=== PATIENT | female | born 1975 | race Caucasian/White ===

== ENCOUNTER 2024-02-18 09:21 | Outpatient (AMB) | payer MEDICAID, SELFPAY ==
[2024-02-18 09:28] VITALS: BP 124/79; PULSE 77; RESP 18; TEMP 36.7; O2SAT 97; BMI 31.5
--- NOTE | 2024-02-18 09:28 | ORTHONT_ITS ---
Vital signs 02/18/24 09:28 Height 1.63 m Height Method Stated Weight 83.688 kg Weight Measurement Method Standing Scale BMI 31.5 BP 124/79 Blood Pressure Source Automatic Cuff Blood Pressure Location Left Upper Arm Position Sitting Respiration 18 Pulse 77 Pulse Source Monitor Temp 98.0 F Temp Source Temporal Artery Scan Pulse Oximetry (%) 97 Oxygen Delivery Method Room Air Med/Allergies Allergies & Medications Allergies codeine Allergy (Intermediate, Verified 02/18/24 09:29) NAUSEA hydromorphone Allergy (Intermediate, Verified 02/18/24 09:29) VOMITING, ITCHING latex Allergy (Intermediate, Verified 02/18/24 09:29) RASH,SWELLING Sulfa (Sulfonamide Antibiotics) Allergy (Intermediate, Verified 02/18/24 09:29) ITCHING, NAUSEA, AND VOMITTING sulfamethoxazole Allergy (Intermediate, Verified 02/18/24 09:29) RASH trimethoprim Allergy (Intermediate, Verified 02/18/24 09:29) RASH Medication Reconciliation Oxybutynin Chloride XL * (DITROPAN XL *) 10 mg PO QDAY ##0 04/03/17 [History Confirmed 02/18/24] loratadine 10 mg tablet (Claritin) 10 mg PO QDAY #0 tabs 04/03/17 [History Confirmed 02/18/24] lorazepam 1 mg tablet 1 mg PO BID #0 tabs 04/03/17 [History Confirmed 02/18/24] quetiapine 300 mg tablet (Seroquel) 300 mg PO HS #0 tabs 04/03/17 [History Confirmed 02/18/24] ranitidine HCl 150 mg tablet (Zantac) 150 mg PO HS #0 tabs 04/03/17 [History Confirmed 02/18/24] Psyllium Husk PKT * (METAMUCIL PKT *) 1 pkt PO BID ##60 04/07/17 [Rx Confirmed 02/18/24] docusate sodium 100 mg tablet (Stool Softener) 100 mg PO BID #60 tabs 04/07/17 [Rx Confirmed 02/18/24] tramadol 50 mg tablet (Ultram) 100 mg (2 x 50 mg) PO Q6HR PRN PAIN #50 tabs 04/07/17 [Rx Confirmed 02/18/24] Subjective Visit Visit for: follow up visit Immunization / Flu Flu Vaccine in the Last 12 Months: No Flu Vaccine Exclusion Criteria: Already Received History of Present Illness Chief complaint: PRE OP LEFT TKA Patient is a pleasant 48-year-old female with right greater than left knee pain. The knee pain has been ongoing for 3 to 4 years. Is been worse in the last 3 months is affecting her quality life and happiness. She has had over 5 injections, and Aleve. The pain is affecting her quality life and happiness. She had a change of insurance. 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/CAMPING Red flag PMH: smoker (CANNIBUS) Pain Pain level (0-10): 9 Pain duration: all day Pain location: inside (medial), outside (lateral), anterior and posterior Pain quality: sharp, dull, aching, burning, shocking, electric and tingling Pain timing: night, increases with activity and stairs Associated signs & symptoms: numbness, weakness and stiffness Ambulatory data Ambulatory device: none Treatments Number of previous injections: 5 Improvement with previous injections: No Improvement with PT: No Improvement with NSAIDS: no Review of Systems Review of Systems: All systems negative unless otherwise noted in HPI. Exam Exam Patient is in no acute distress and is cooperative with the examination today. Breathing is nonlabored. In no respiratory distress. Bilateral extremities were evaluated and demonstrates sensation intact to light touch. Palpable pedal pulses are present. No significant edema is present. Bilateral hips were examined. The patient has no pain with log roll of the hips. Internal rotation to 30 degrees and external rotation to 30 degrees is painless. Negative FADIR. The left knee was examined. The left knee is in [varus] alignment. Range of motion from [0-115] degrees. Knee is stable to varus and valgus as well as AP translation with <5mm. Patient has a [negative] McMurrays. There is [no] pain with patellofemoral compression and [no] crepitus noted. The knee is [tender] to palpation [medially]. The right knee was also examined. The right knee is in [varus] alignment. Range of motion from [0-120] degrees. Knee is stable to varus and valgus as well as AP translation with <5mm. Patient has a [negative] McMurrays. There is [no] pain with patellofemoral compression and [no] crepitus noted. The knee is [tender] to palpation [medially]. X-rays from [facility] demonstrate medial joint space narrowing and osteophytes Assessment and Plan Problem List (1) Degenerative arthritis of knee, bilateral: Status: Acute Plan: Patient is a pleasant 48-year-old female with bilateral knee pain bilateral knee arthritis. The pain is affecting her quality life. We discussed that I would order weightbearing x-rays and we can discuss knee replacement depending on what that shows. She would also need medical clearance Office Procedures GNS Level of Care Nursing/Assessment Patient Status: Established Patient Nursing Assessment/Reassesment: Medication Reconciliation, Update PMH in EMR and Vital Signs Coordination of Care: Complex Care and Chronic Disease 1-5, Education Complex Pt/Fam, Consent,records obtained, informed consent, 1 Ins Authorization, Results/Orders obtained and Staff clarify orders Established Patient Charge Established Patient Point Assignment: 110 Established Patient Point Charge: EP Level 3 (80-115) Past Medical History Past Medical History Have you ever been diagnosed with any of the following: Respiratory Problems Smoking: No Smoking Exposure: No
== END 2024-02-18 09:43 | disposition home or self-care (01) ==
PROVIDERS: PCP Family Medicine; Referring Provider Family Medicine; Supervising Provider Orthopaedic Surgery Adult Reconstructive Orthopaedic Surgery; Visit Provider Orthopaedic Surgery Adult Reconstructive Orthopaedic Surgery
DX: M17.0 Bilateral primary osteoarthritis of knee (principal); M25.562 Pain in left knee; M25.561 Pain in right knee
CPT/HCPCS: 99213; G0463

== ENCOUNTER 2024-03-03 08:19 | Outpatient (AMB) | payer MEDICAID, SELFPAY ==
--- NOTE | 2024-03-03 08:24 | PD.ORTHCLVIS ---
Vital signs 03/03/24 08:25 Height 1.63 m Height Method Measured Weight 84.17 kg Weight Measurement Method Standing Scale BMI 31.6 BP 117/81 Blood Pressure Source Automatic Cuff Blood Pressure Location Left Upper Arm Position Sitting Respiration 19 Pulse 77 Pulse Source Monitor Temp 97.9 F Temp Source Temporal Artery Scan Pulse Oximetry (%) 98 Oxygen Delivery Method Room Air Med/Allergies Allergies & Medications Allergies codeine Allergy (Intermediate, Verified 03/03/24 08:26) NAUSEA hydromorphone Allergy (Intermediate, Verified 03/03/24 08:26) VOMITING, ITCHING latex Allergy (Intermediate, Verified 03/03/24 08:26) RASH,SWELLING Sulfa (Sulfonamide Antibiotics) Allergy (Intermediate, Verified 03/03/24 08:26) ITCHING, NAUSEA, AND VOMITTING sulfamethoxazole Allergy (Intermediate, Verified 03/03/24 08:26) RASH trimethoprim Allergy (Intermediate, Verified 03/03/24 08:26) RASH Medication Reconciliation naproxen sodium 220 mg tablet (Aleve) 220 mg PO BID PRN 03/03/24 [History Confirmed 03/03/24] Subjective Visit Visit for: follow up visit and knee Immunization / Flu Flu Vaccine in the Last 12 Months: No Flu Vaccine Exclusion Criteria: Already Received History of Present Illness Chief complaint: PRE OP RIGHT TKA Patient is a pleasant 48-year-old female with right greater than left knee pain. The knee pain has been ongoing for 3 to 4 years. Is been worse in the last 3 months is affecting her quality life and happiness. She has had over 5 injections, and Aleve. The pain is affecting her quality life and happiness. She reports today that she is allergic to nickel. 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 Exam Exam Patient is in no acute distress and is cooperative with the examination today. Breathing is nonlabored. In no respiratory distress. Bilateral extremities were evaluated and demonstrates sensation intact to light touch. Palpable pedal pulses are present. No significant edema is present. Bilateral hips were examined. The patient has no pain with log roll of the hips. Internal rotation to 30 degrees and external rotation to 30 degrees is painless. Negative FADIR. The left knee was examined. The left knee is in [varus] alignment. Range of motion from [0-115] degrees. Knee is stable to varus and valgus as well as AP translation with <5mm. Patient has a [negative] McMurrays. There is [no] pain with patellofemoral compression and [no] crepitus noted. The knee is [tender] to palpation [medially]. The right knee was also examined. The right knee is in [varus] alignment. Range of motion from [0-120] degrees. Knee is stable to varus and valgus as well as AP translation with <5mm. Patient has a [negative] McMurrays. There is [no] pain with patellofemoral compression and [no] crepitus noted. The knee is [tender] to palpation [medially]. Bilateral knee x-rays demonstrates complete joint space obliteration medially with varus deformity and osteophytes. Assessment and Plan Problem List (1) Degenerative arthritis of knee, bilateral: Status: Acute Plan: Patient is a pleasant 48-year-old female with bilateral knee pain bilateral knee arthritis. The pain is affecting her quality life. Weightbearing x-rays demonstrate complete obliteration of the medial joint space. We discussed that she is on the younger side for a total knee replacement. She also reports that she does have a nickel allergy. We will thus use a nickel free knee replacement given this. The nature and purpose of the total knee replacement, alternative method(s) of treatment, the material risks involved, and the possibility of complications were fully explained to the patient. The patient does NOT have any of the following contraindications to TKA: - Active infection of the knee joint, OR - Active systemic bacteremia, OR - Active skin infection or open wound at surgical site, OR - Neuropathic arthritis, OR - Severe, rapidly progressive neurological disease, OR - Severe medical condition that makes risks of surgery outweigh the potential benefit The patient was told the most common risks and complications associated with a total knee replacement include, but are not limited to: blood clots in the leg, fatal pulmonary embolism, dislocation of the prosthesis, intraoperative and postoperative fractures of the femur or tibia, infection, failure of the prosthesis or grafting materials, complications from anesthesia, reactions to blood transfusions, postoperative leg length inequality, instability of the knee replacement, nerve damage or injury, vascular injury, delayed wound healing, infection, other injury or even . In addition, there are risks associated with anesthesia given during this operation. Also, the patient was told that after undergoing a total knee replacement there may still be persistent pain or disability. The patient was informed that the success of this operation in part depends upon the mechanical devices which are going to be implanted and that these devices can fail or malfunction, and may need to be repaired or replaced and there are no guarantees as to the longevity of this device or its parts and that it or its parts could fail prematurely. The patient was also notified that during the course of surgery, there may be a need to use bone graft from donors, and that any bone graft used will be carefully screened for communicable diseases, including AIDS, hepatitis, Remi-Creutzfeldt, or other diseases, but despite the screening procedures, there is a small chance that they could contract one of these diseases. Finally, the patient was asked to follow completely and fully with all advice and recommended treatments, and that recovery and ultimate outcome are affected by their compliance with recommended treatment. We discussed the risks, benefits and treatment alternatives, and the patient is interested in proceeding with surgery. We will try to set this up as expeditiously as possible. Office Procedures GNS Level of Care Nursing/Assessment Patient Status: Established Patient Nursing Assessment/Reassesment: Medication Reconciliation, Update PMH in EMR and Vital Signs Coordination of Care: Complex Care/Chronic Disease 5 or more, Education Complex Pt/Fam, Consent,records obtained, informed consent, 1 Ins Authorization, Results/Orders obtained and Staff clarify orders Established Patient Charge Established Patient Point Assignment: 120 Established Patient Point Charge: EP Level 4 (120-155) Past Medical History Past Medical History Have you ever been diagnosed with any of the following: Cardiology Problems Congestive Heart Failure: No Hypertension: No Respiratory Problems Chronic Obstructive Pulmonary Disease (COPD): No Smoking: No Smoking Exposure: No
[2024-03-03 08:25] VITALS: BP 117/81; PULSE 77; RESP 19; TEMP 36.6; O2SAT 98; BMI 31.6
== END 2024-03-03 08:46 | disposition home or self-care (01) ==
LOC: HODSRG 08:19
PROVIDERS: Supervising Provider Orthopaedic Surgery Adult Reconstructive Orthopaedic Surgery; Visit Provider Orthopaedic Surgery Adult Reconstructive Orthopaedic Surgery
DX: M17.0 Bilateral primary osteoarthritis of knee (principal); M25.562 Pain in left knee; M25.561 Pain in right knee
CPT/HCPCS: 99213; 99214; G0463

== ENCOUNTER 2024-03-09 06:50 | Day surgery (SDC) | payer MEDICAID, SELFPAY ==
[2024-03-08 09:06] VITALS: BMI 33.2
[2024-03-08 10:23] LABS: Basophils % (Auto) 0 % (0-2.5); Eosinophils # (Auto) 0.3 Thou/mm3 (0.0-0.5); Eosinophils % (Auto) 4 % (0-10); Hematocrit 39.2 % (36.0-46.0); Hemoglobin 12.8 g/dL (12.0-16.0); Immature Granulocytes % (Auto) 0 % (0-0); Immature Granulocytes Auto 0.01 Thou/mm3 (0.00-0.00); Lymphocytes # (Auto) 2.1 Thou/mm3 (1.0-4.8); Lymphocytes % (Auto) 33 % (10-50); Mean Corpuscular HGB Conc 32.7 g/dl (31.0-37.0); Mean Corpuscular Hemoglobin 28.3 pg (25.0-35.0); Mean Corpuscular Volume 87 fL (80-100); Monocytes # (Auto) 0.5 Thou/mm3 (0.0-0.8); Monocytes % (Auto) 7 % (0-12); Neutrophils # (Auto) 3.5 Thou/mm3 (1.8-7.7); Neutrophils % (Auto) 56 % (37-80); Nucleated Red Blood Cell % 0 /100 WBC (0); Platelet Count 265 Thou/mm3 (140-440); RDW Standard Deviation 41.5 fL (36.4-46.3); Red Blood Count 4.52 Miln/mm3 (4.00-5.20); White Blood Count 6.4 Thou/mm3 (3.6-11.0)
[2024-03-08 10:30] LABS: Anion Gap 5 (7-16); BUN/Creatinine Ratio 16 Ratio (12-20); Blood Urea Nitrogen 11 mg/dL (9-23); Calcium 9.5 mg/dL (8.3-10.6); Carbon Dioxide 28.1 mMol/L (20.0-31.0); Chloride 107 mMol/L (98-107); Creatinine (Component) 0.7 mg/dL (0.6-1.3); Estimated Creatinine Clearance 105.5 mL/min (>60); Glucose 87 mg/dL (74-106); Osmolality,Calculated 277 (275-295); Potassium 4.5 mMol/L (3.4-5.1); Sodium 140 mMol/L (136-145); eGFR > 60 See Note
[2024-03-08 10:35] LABS: INR 0.9 (0.9-1.3); Partial Thromboplastin Time 23.9 Seconds (22.0-36.0); Prothrombin Time 10.3 Seconds (9.0-12.2)
[2024-03-09] VITALS (18 sets, daily range): BP systolic 105–144; BP diastolic 64–88; PULSE 63–85; RESP 13–20; TEMP 36.1–36.7; O2SAT 94–100; BMI 32.3; BMI 15.0
[2024-03-09] MEDS: PREGABALIN 75 MG CAPSULE PO (07:22)
[2024-03-09] MEDS: MELOXICAM 7.5 MG TABLET PO (07:22)
[2024-03-09] MEDS: ACETAMINOPHEN 325 MG TABLET 650 MG PO (07:22)
[2024-03-09] MEDS: RINGERS LACTATED 1000 ML 1,000 ML 20 ML IV (07:22)
--- NOTE | 2024-03-09 11:36 | XR_ITS ---
Examination: Right knee 2 views Technique one AP lateral right knee 2 views Exam date and time: March 09, 2024 1213 hours INDICATIONS: Postop knee replacement FINDINGS: Total right knee replacement Satisfactory alignment No fracture IMPRESSION: Total right knee replacement with satisfactory alignment
--- NOTE | 2024-03-09 11:44 | SUR.PHASEI ---
pt received from OR in recovery bay 5. pt obtunded, breathing unlabored on 10l nc, lma in place. v/s stable. pt dressing to right lower extremity cdi. report received from Herve LOZANO and Jag HOLGUIN.
[2024-03-09] MEDS: ONDANSETRON INJ 2 MG/ML INJ 2 ML 4 MG IV (12:20)
[2024-03-09] MEDS: SCOPOLAMINE 1 MG TDSY TOP (12:34)
--- NOTE | 2024-03-09 12:36 | SUR.PHASEII ---
Report from Randy LOZANO
[2024-03-09] MEDS: PROMETHAZINE INJ 12.5 MG in SODIUM CHLORIDE 0.9% 50 ML 2.5 MG IV (12:50)
--- NOTE | 2024-03-09 13:12 | SUR.PHASEII ---
Report to Randy LOZANO
--- NOTE | 2024-03-09 13:30 | SUR.PHASEII ---
pt able to eat jello and tolerate oral fluids without difficulty swallowing or nausea/vomiting.
[2024-03-09] MEDS: ACETAMINOPHEN 500 MG TABLET 1000 MG PO (13:39)
[2024-03-09] MEDS: oxyCODONE HCL 5 MG IR TAB 10 MG PO (13:39)
--- NOTE | 2024-03-09 16:15 | SUR.PHASEII ---
pt awake and alert, breathing unlabored on room air. v/s stable. pt dressing to right lower extremity cdi. pt cleared by Physical Therapist Marisa. pt able to ambulate to wheelchair with steady gait. d/c instructions given with s/o Lawson in room, all question answered. pt d/c via wheelchair with all belongings.
--- NOTE | 2024-03-14 15:46 | ESOP_ITS ---
Date of Procedure 03/09/24 Pre Op Diagnosis right knee osteoarthritis Post Op Diagnosis right knee osteoarthritis Procedure right total knee replacement Findings full thickness cartilage loss and osteophytes Procedure Description Indication: The patient is a 48 year old who has a long history of right knee pain. X-rays show degenerative arthritis involving the knee. Over the past several years the patient has had increasing pain, progressive limitation in function. He has failed conservative measures including activity modification, physical therapy, injections, anti-inflammatories, and assistive devices. After a lengthy discussion of the risks and benefits, the patient presents now for total knee replacement. We discussed a nickel free knee replacement given her history. The nature and purpose of the total knee replacement, alternative method(s) of treatment, the material risks involved, and the possibility of complications we re fully explained to the patient. The patient was told the most common risks and complications associated with a total knee replacement include, but are not limited to blood clots in the leg, fatal pulmonary embolism, dislocation of the prosthesis, intraoperative and postoperative fractures of the femur or tibia, infection, failure of the prosthesis or grafting materials, complications from anesthesia, reactions to blood transfusions, postoperative leg length inequality, instability of the knee replacement, nerve damage or injury, vascular injury, delayed wound healing, infections, other injury or even . In addition, there are risks associated with anesthesia given during this operation, temporary or permanent numbness on the skin lateral to the incision can be a complication unique to total knee surgery, and kneeling can be painful after knee replacement surgery. Also, the patient was told that after undergoing a total knee replacement there may still be pain or disability. We discussed with the patient that we will be using a robot-assisted technology. We discussed that there is a possibility of converting to manual instrumentation. The patient was informed that the success of this operation in part depends upon the mechanical devices which are going to be implanted and that these devices can fail or malfunction, and may need to be repaired or replaced and there are no guarantees as to the longevity of this device or its part and that it or its parts could fail prematurely. Finally, the patient was asked to follow completely and fully with all advice and recommended treatments, and that recovery and ultimate outcome are affected by their compliance with recommended treatment. Surgical technique: Patient was marked and consented in the pre-operative area. The patient was brought to the operating room and placed on the operating table in a supine position. Prior to positioning, a timeout procedure was performed between the surgeon, the anesthesiologist, and the nursing staff where the patient and the operative side were identified and confirmed. After adequate general anesthetic was obtained, the left lower extremity was prepped and draped in the usual sterile fashion. A weight based dose of Cefazolin were administered within 1 hour prior to incision. The robot was preregistered and calirated before the incision. The extremity was exsanguinated with an esmarch badge and tourniquet inflated to 250mmHg. A midline incision was made. A median parapatellar arthrotomy was made. The patella was subluxed laterally. A medial release was performed to expose the medial tibia. His femoral and tibial pins were placed through an intra incisional manner for both cases. Every effort was made to ensure that the distalmost aspect of the pin was hung in the second cortex. The arrays were then tightened several times to ensure that it was fixed for the remainder of the case. Both femoral and tibial checkpoints were then placed. We then went through the registration process of the bone. We then assessed the knee deformity and attempted to correct it. We also used the robot to aid in judging laxity in both extension and flexion. Final based on laxity and alignment we changed the preoperative assessment to obtain proper proper implant positioning and to correct deformity. Attention was then placed to the tibia. We made a tibial cut using the robot ensuring that both the MCL and the patella tendon were protected with retractors. We then went to the femur and made the posterior cut followed by the anterior cut and the anterior chamfer. The bone was then removed and we made a distal femur cut and a posterior chamfer cut. We verified all cuts. A trial reduction was performed with a size marnie femoral component and a keeled tibial component. The patella tracked centrally, and no lateral retinacular release was necessary. The trial implants were removed. The arrays, pins, and checkpoints were all removed. We performed a verification that all pins were removed. The cut bone surfaces were lavaged. A Marnie nickel free femoral component, and a keeled tibial component were impacted into position using 2 bags of palacos. The knee was left in extension until the cement hardened. The knee was felt to be well balanced in the sagittal and coronal plane. The final 11mm cruciate- substituting articular insert was impacted into the tibial tray. The knee was brought out to full extension, flexed up to 120 degrees. It was stable to varus and valgus stress and appropriately balanced in flexion and extension. The wounds were copiously irrigated following deflation of tourniquet. The medial retinaculum was reapproximated with #1 vicryl and quill. The subcutaneous tissues were closed with 0 and 2-0 interrupted Vicryl. The skin was closed with 3-0 Monofilament V loc suture. A sterile dressing was applied. The patient was transferred to a bed and brought to recovery in stable condition. The patient tolerated the procedure well. There were no intraoperative complications. Sponge and needle counts were correct times 2. As the attending surgeon, I attest I was present and performed the entire operation. Anesthesia GETA Implants marnie persona nickel free Pathology / specimen None Pathology comment: none Estimated Blood Loss 150 Surgeon Marshall Abel MD Surgical Staff Operation Date: 03/09/24 10:45 Case Staff BOATBUILDER SUPERVISOR: Matt Narvaez RNcomputer tester: Mel Goodwin
== END 2024-03-09 16:15 | disposition home or self-care (01) ==
PROVIDERS: PCP Family Medicine; Referring Provider Orthopaedic Surgery Adult Reconstructive Orthopaedic Surgery; Visit Provider Orthopaedic Surgery Adult Reconstructive Orthopaedic Surgery
PROC: (CPT 27447; principal; 2024-03-09 10:45)
DX: M17.11 Unilateral primary osteoarthritis, right knee (principal); M25.761 Osteophyte, right knee
CPT/HCPCS: 27447; 20985; C1776; 36415; 73560; 80048; 85025; 85610; 85730; 97162; A4217; C1713; J0171; J0690; J1100; J1885; J2250; J2405; J2550; J2704; J2795; J3010; J3490; J7030; J7120; A9270

== ENCOUNTER 2024-03-25 08:30 | Outpatient (AMB) | payer MEDICAID, SELFPAY ==
[2024-03-25 08:49] VITALS: BP 118/82; PULSE 74; RESP 18; TEMP 36.7; O2SAT 94; BMI 32.0
--- NOTE | 2024-03-25 08:49 | PD.ORTHCLVIS ---
Vital signs 03/25/24 08:49 Height 1.63 m Height Method Stated Weight 84.567 kg Weight Measurement Method Standing Scale BMI 32.0 BP 118/82 Blood Pressure Source Automatic Cuff Blood Pressure Location Left Upper Arm Position Sitting Respiration 18 Pulse 74 Pulse Source Monitor Temp 98.0 F Temp Source Temporal Artery Scan Pulse Oximetry (%) 94 L Oxygen Delivery Method Room Air Med/Allergies Allergies & Medications Allergies codeine Allergy (Intermediate, Verified 03/09/24 11:29) NAUSEA hydromorphone Allergy (Intermediate, Verified 03/09/24 11:29) VOMITING, ITCHING latex Allergy (Intermediate, Verified 03/09/24 11:29) RASH,SWELLING Sulfa (Sulfonamide Antibiotics) Allergy (Intermediate, Verified 03/09/24 11:29) ITCHING, NAUSEA, AND VOMITTING sulfamethoxazole Allergy (Intermediate, Verified 03/09/24 11:29) RASH trimethoprim Allergy (Intermediate, Verified 03/09/24 11:29) RASH Subjective Visit Visit for: post op #1 and knee Immunization / Flu Flu Vaccine in the Last 12 Months: No Flu Vaccine Exclusion Criteria: Already Received History of Present Illness Chief complaint: PT HERE FOR 2 WEEK POST OP RIGHT TKA Pain Pain level (0-10): 8 Pain duration: CONSTANT Pain location: inside (medial), outside (lateral), anterior and posterior Pain quality: aching Pain timing: night and increases with activity Associated signs & symptoms: stiffness Ambulatory data Ambulatory device: walker Review of Systems Review of Systems: All systems negative unless otherwise noted in HPI. Office Procedures GNS Level of Care Nursing/Assessment Patient Status: Established Patient Nursing Assessment/Reassesment: BP Monitoring, Medication Reconciliation, Update PMH in EMR and Vital Signs Coordination of Care: Complex Care and Chronic Disease 1-5, Consent,records obtained, informed consent, Lab and Imaging orders and Results/Orders obtained Established Patient Charge Established Patient Point Assignment: 95 Established Patient Point Charge: EP Level 3 (80-115) Past Medical History Past Medical History Have you ever been diagnosed with any of the following: Neurological Problems Seizures: No Migraine: Yes Cardiology Problems Congestive Heart Failure: No Hypertension: No Respiratory Problems Chronic Obstructive Pulmonary Disease (COPD): No Asthma: Yes (USES SYMBICORT) Smoking: Yes (THC) Smoking Exposure: Yes Stomache/Intestinal Problems Mario's Esophagus: Yes Gastroesophageal Reflux Disease: Yes (OTC OMEPRAZOLE PRN) Genital/Urinary Problems Renal Disease: No Kidney Stones: Yes Reproductive Problems Previous Pregnancies: Yes (X2) Musculoskeletal Problems Arthritis: Yes (BILATERAL KNEES) Degenerative Disk Disease: Yes Endocrine Problems Diabetes Mellitus Type 1: No Diabetes Mellitus Type 2: No Psychologic Problems Depression: Yes (NO MEDS. USES CANNABIS) Anxiety: Yes (NO MEDS) Other Problems Falls: No Blood Transfusions: No Anesthesia Reactions: Yes (PANICK ATTACK ON AWAKENING X2) Surgical History Hysterectomy: Yes
== END 2024-03-25 09:05 | disposition home or self-care (01) ==
PROVIDERS: PCP Physician Assistant; Referring Provider Physician Assistant; Supervising Provider Orthopaedic Surgery Adult Reconstructive Orthopaedic Surgery; Visit Provider Orthopaedic Surgery Adult Reconstructive Orthopaedic Surgery
DX: Z96.651 Presence of right artificial knee joint (principal)
CPT/HCPCS: 99213; G0463

== ENCOUNTER 2024-04-01 15:00 | Outpatient (RCR) | payer MEDICAID, SELFPAY ==
--- NOTE | 2024-03-23 08:37 | PT.OIERPT ---
PT OP Initial Eval Patient Information Outpatient Physical Therapy Treatment Date: 03/23/24 Visit Reasons: Right tka Medical Diagnosis: M17.11 Treatment Dx #1: R knee pain Treatment Dx #2: Decreased R knee ROM Start of Care: 03/23/24 Date of Onset: 03/09/24 Smoking Status Smoking Status: Never smoker Initial Assessment Subjective: Pt is 48 yr old female s/p R TKA presents ambulating with FWW and reports knee pain and difficulty bending it. She is ambulating at home and limited community distances. PMH: lumbar DDD, anxiety, allergies Pt goal: to be able to walk without walker normal distances Objective: R knee AROM: ? Flexion: 78 deg ? Extension: -10 deg ? SLR: ? 15 deg ? Strength: ? Quads and hamstrings 3-/5 ? Antalgic gait pattern with decreased WB tolerance on R LE Assessment: Pt presentation consistent with post op R TKA with decreased ROM, strength ? and WB tolerance. Pt lacks a few degrees of knee extension and flexion is limited by ? myofascial limitations and pain.? Pt requires skilled therapy to improve ROM ? and strength and has good rehab potential.? Eval followed by HEP with printout. Short Term and [employer] Specialist Goals 1. Independent with HEP 2. Improved knee ROM to full extension to 120 deg flexion 3. Improved quad and hamstring strength to 4+/5 4. Improved ambulatory tolerance to community distances with symmetrical ?? gait pattern.??? Treatment Plan ? 1. Manual therapy ? 2. Therex ? 3. Modalities as indicated, moist heat, ice, estim Frequency and Duration: 2-3x a week for 18 visits Certification Dates: 03/23/24 to 06/19/24 Procedure Charges OP PT Eval Mod Complex 30 minutes: Yes
--- NOTE | 2024-03-30 17:26 | PT.ODAYNRPT ---
PT Outpatient Daily Note OP Daily Note Outpatient Physical Therapy Treatment Date: 03/30/24 Visit Reasons: Right tka Subjective: Doing HEP with better ROM and walking without walker today Objective: See F/S for therex Assessment: Pt ambulates with flexed R knee but has improved extension ROM since last visit to about -10 deg in supine. Plan: Continue per POC Length of Time (minutes) of Treatment: 30 Minutes Procedure Charges Therapeutic Exercise 30 minutes: Yes
--- NOTE | 2024-04-01 16:00 | PT.ODAYNRPT ---
PT Outpatient Daily Note OP Daily Note Outpatient Physical Therapy Treatment Date: 04/01/24 Visit Reasons: Right tka Subjective: Pt reports compliance with HEP. Objective: Please see flow sheet for ther ex list. Assessment: Pt instructed on stretches for R knee for knee flexion and extension, pt able to replicate with good technique. Plan: Continue with POC. Length of Time (minutes) of Treatment: 30 Minutes Procedure Charges Therapeutic Exercise 30 minutes: Yes
== END 2024-04-12 23:59 | disposition home or self-care (01) ==
LOC: CPTX 15:00
PROVIDERS: PCP Orthopaedic Surgery Adult Reconstructive Orthopaedic Surgery; Referring Provider Orthopaedic Surgery Adult Reconstructive Orthopaedic Surgery; Visit Provider Orthopaedic Surgery Adult Reconstructive Orthopaedic Surgery
DX: M25.561 Pain in right knee (principal); Z96.651 Presence of right artificial knee joint
CPT/HCPCS: 97110; 97162

== ENCOUNTER → 2024-04-18 | Outpatient (CLI) | payer MEDICAID, SELFPAY ==
--- NOTE | 2024-04-18 10:38 | XR_ITS ---
Examination: Right knee 4 views TECHNIQUE: AP oblique lateral axial right knee 4 views Exam date and time: April 18, 2024 1045 hours INDICATIONS: Postop knee replacement 6 weeks ago. FINDINGS: Total right knee arthroplasty. Satisfactory alignment. No fracture. No loosening of the prosthetic components IMPRESSION: Total right knee arthroplasty with satisfactory alignment
== END | disposition home or self-care (01) ==
LOC: CDIM 10:26
PROVIDERS: PCP Family Medicine; Referring Provider Orthopaedic Surgery Adult Reconstructive Orthopaedic Surgery; Visit Provider Orthopaedic Surgery Adult Reconstructive Orthopaedic Surgery
DX: M17.11 Unilateral primary osteoarthritis, right knee (principal); Z96.651 Presence of right artificial knee joint
CPT/HCPCS: 73564

== ENCOUNTER 2024-04-22 07:52 | Outpatient (AMB) | payer MEDICAID, SELFPAY ==
[2024-04-22 08:11] VITALS: BP 119/83; PULSE 84; RESP 19; TEMP 36.6; O2SAT 96; BMI 31.4
--- NOTE | 2024-04-22 08:11 | ORTHONT_ITS ---
Vital signs 04/22/24 08:11 Height 1.63 m Height Method Stated Weight 83.518 kg Weight Measurement Method Standing Scale BMI 31.4 BP 119/83 Blood Pressure Source Automatic Cuff Blood Pressure Location Left Upper Arm Position Sitting Respiration 19 Pulse 84 Pulse Source Monitor Temp 97.9 F Temp Source Temporal Artery Scan Pulse Oximetry (%) 96 Oxygen Delivery Method Room Air Med/Allergies Allergies & Medications Allergies codeine Allergy (Intermediate, Verified 04/22/24 08:12) NAUSEA hydromorphone Allergy (Intermediate, Verified 04/22/24 08:12) VOMITING, ITCHING latex Allergy (Intermediate, Verified 04/22/24 08:12) RASH,SWELLING Sulfa (Sulfonamide Antibiotics) Allergy (Intermediate, Verified 04/22/24 08:12) ITCHING, NAUSEA, AND VOMITTING sulfamethoxazole Allergy (Intermediate, Verified 04/22/24 08:12) RASH trimethoprim Allergy (Intermediate, Verified 04/22/24 08:12) RASH Medication Reconciliation naproxen sodium 220 mg tablet (Aleve) 440 mg PO BID PRN Pain (Scale Score 4-6) 03/03/24 [History Confirmed 04/22/24] budesonide-formoterol HFA 160 mcg-4.5 mcg/actuation aerosol inhaler (Symbicort) 1 inh inhalation BID 03/08/24 [History Confirmed 04/22/24] omega-3 fatty acids-vitamin E 1,000 mg capsule 1 cap PO QDAY 03/08/24 [History Confirmed 04/22/24] aspirin 81 mg tablet,delayed release 81 mg PO BID #60 tabs 03/09/24 [Rx Confirmed 04/22/24] doxycycline hyclate 100 mg tablet 100 mg PO BID #14 tabs 03/09/24 [Rx Confirmed 04/22/24] oxycodone 5 mg tablet 5 mg PO Q6H PRN pain #28 tabs 03/09/24 [Rx Confirmed 04/22/24] sennosides 8.6 mg-docusate sodium 50 mg tablet (Senna-S) 1 tab-cap PO QDAY #30 tabs 03/09/24 [Rx Confirmed 04/22/24] acetaminophen 500 mg tablet (Acetaminophen Extra Strength) 1,000 mg (2 x 500 mg) PO Q6H PRN pain #90 tabs 03/25/24 [Rx Confirmed 04/22/24] cyclobenzaprine 5 mg tablet 5 mg PO TID PRN muscle spasm #60 tabs 04/22/24 [Rx] gabapentin 300 mg capsule 300 mg PO .qhs #30 caps 04/22/24 [Rx] ibuprofen 600 mg tablet 600 mg PO Q6H PRN pain #60 tabs 04/22/24 [Rx] oxycodone 5 mg tablet 5 mg PO Q6H PRN pain #28 tabs 04/22/24 [Rx] Exam Exam Patient is in no acute distress and is cooperative with the examination today. Breathing is nonlabored. In no respiratory distress. Bilateral extremities were evaluated and demonstrates sensation intact to light touch. Palpable pedal pulses are present. No significant edema is present. Bilateral hips were examined. The patient has no pain with log roll of the hips. Internal rotation to 30 degrees and external rotation to 30 degrees is mariaa nless. Negative FADIR. The left knee was examined. The left knee is in [varus] alignment. Range of motion from [0-115] degrees. Knee is stable to varus and valgus as well as AP translation with <5mm. Patient has a [negative] [place]. There is [no] pain with patellofemoral compression and [no] crepitus noted. The knee is [tender] to palpation [medially]. Right knee incision c/d/i. R knee range of motion is 0-110 R TKA is in good alignment and position on xraysl Assessment and Plan Problem List (1) Degenerative arthritis of knee, bilateral: Status: Acute Plan: Patient is a pleasant 48-year-old female with bilateral knee pain bilateral knee arthritis. She is doing well s/p R TKA. Her leftknee is affecting her quality of life and happiness. She has tried multiple injections, and antiinflammatories and a home exercise program. At this point, Left knee is affecting her quality life and happiness. She reports the right knee feels way better than the left. She would like to get the left knee replaced when she can. The nature and purpose of the total knee replacement, alternative method(s) of treatment, the material risks involved, and the possibility of complications were fully explained to the patient. The patient does NOT have any of the following contraindications to TKA: - Active infection of the knee joint, OR - Active systemic bacteremia, OR - Active skin infection or open wound at surgical site, OR - Neuropathic arthritis, OR - Severe, rapidly progressive neurological disease, OR - Severe medical condition that makes risks of surgery outweigh the potential benefit The patient was told the most common risks and complications associated with a total knee replacement include, but are not limited to: blood clots in the leg, fatal pulmonary embolism, dislocation of the prosthesis, intraoperative and postoperative fractures of the femur or tibia, infection, failure of the prosthesis or grafting materials, complications from anesthesia, reactions to blood transfusions, postoperative leg length inequality, instability of the knee replacement, nerve damage or injury, vascular injury, delayed wound healing, infection, other injury or even . In addition, there are risks associated with anesthesia given during this operation. Also, the patient was told that after undergoing a total knee replacement there may still be persistent pain or disability. The patient was informed that the success of this operation in part depends upon the mechanical devices which are going to be implanted and that these devices can fail or malfunction, and may need to be repaired or replaced and there are no guarantees as to the longevity of this device or its parts and that it or its parts could fail prematurely. The patient was also notified that during the course of surgery, there may be a need to use bone graft from donors, and that any bone graft used will be carefully screened for communicable diseases, including AIDS, hepatitis, Remi-Creutzfeldt, or other diseases, but despite the screening procedures, there is a small chance that they could contract one of these diseases. Finally, the patient was asked to follow completely and fully with all advice and recommended treatments, and that recovery and ultimate outcome are affected by their compliance with recommended treatment. We discussed the risks, benefits and treatment alternatives, and the patient is interested in proceeding with [facility]. We will try to set this up as expeditiously as possible. Office Procedures GNS Level of Care Nursing/Assessment Patient Status: Established Patient Nursing Assessment/Reassesment: Medication Reconciliation, Update PMH in EMR and Vital Signs Coordination of Care: Complex Care and Chronic Disease 1-5, Education Complex Pt/Fam, Consent,records obtained, informed consent, Results/Orders obtained and Staff clarify orders Established Patient Charge Established Patient Point Assignment: 95 Established Patient Point Charge: EP Level 3 (80-115) ID Intake Visit Data Collection New Patient or Established: Established Patient (seen at [facility] within 3 years) Reason for Visit:: 2 WEEK POST OP FOLLOW UP RIGHT TKA Seen by Clinical Staff ONLY (RN/MA): No Gender Studies Professor Required: No PCP or OBGYN visit in last 3 months: Yes Hx Now: No Do You Feel Safe at Home: Yes Authorities Contacted: N/A Questionairres Past Medical History Past Medical History Have you ever been diagnosed with any of the following: Neurological Problems Seizures: No Migraine: Yes Cardiology Problems Congestive Heart Failure: No Hypertension: No Respiratory Problems Chronic Obstructive Pulmonary Disease (COPD): No Asthma: Yes (USES SYMBICORT) Smoking: Yes (THC) Smoking Exposure: Yes Stomache/Intestinal Problems Mario's Esophagus: Yes Gastroesophageal Reflux Disease: Yes (OTC OMEPRAZOLE PRN) Genital/Urinary Problems Renal Disease: No Kidney Stones: Yes Reproductive Problems Previous Pregnancies: Yes (X2) Musculoskeletal Problems Arthritis: Yes (BILATERAL KNEES) Degenerative Disk Disease: Yes Endocrine Problems Diabetes Mellitus Type 1: No Diabetes Mellitus Type 2: No Psychologic Problems Depression: Yes (NO MEDS. USES CANNABIS) Anxiety: Yes (NO MEDS) Other Problems Falls: No Blood Transfusions: No Anesthesia Reactions: Yes (PANICK ATTACK ON AWAKENING X2) Surgical History Hysterectomy: Yes Subjective Visit Visit for: follow up visit and knee Immunization / Flu Flu Vaccine in the Last 12 Months: No Flu Vaccine Exclusion Criteria: No Exclusion Criteria History of Present Illness Chief complaint: s/p r tka Patient is a 48-year-old female with right knee pain and left knee pain status post right total knee replacement. She had a metal allergy knee and she loves it. She reports the left knee is now affecting her quality life and happiness. It has been ongoing for a while. She has tried injections and anti- inflammatories. She would like to proceed with surgery. The nature and purpose of the total knee replacement, alternative method(s) of treatment, the material risks involved, and the possibility of complications were fully explained to the patient. The patient does NOT have any of the following contraindications to TKA: - Active infection of the knee joint, OR - Active systemic bacteremia, OR - Active skin infection or open wound at surgical site, OR - Neuropathic arthritis, OR - Severe, rapidly progressive neurological disease, OR - Severe medical condition that makes risks of surgery outweigh the potential benefit The patient was told the most common risks and complications associated with a total knee replacement include, but are not limited to: blood clots in the leg, fatal pulmonary embolism, dislocation of the prosthesis, intraoperative and postoperative fractures of the femur or tibia, infection, failure of the prosthesis or grafting materials, complications from anesthesia, reactions to blood transfusions, postoperative leg length inequality, instability of the knee replacement, nerve damage or injury, vascular injury, delayed wound healing, infection, other injury or even . In addition, there are risks associated with anesthesia given during this operation. Also, the patient was told that af ter undergoing a total knee replacement there may still be persistent pain or disability. The patient was informed that the success of this operation in part depends upon the mechanical devices which are going to be implanted and that these devices can fail or malfunction, and may need to be repaired or replaced and there are no guarantees as to the longevity of this device or its parts and that it or its parts could fail prematurely. The patient was also notified that during the course of surgery, there may be a need to use bone graft from donors, and that any bone graft used will be carefully screened for communicable diseases, including AIDS, hepatitis, Remi-Creutzfeldt, or other diseases, but despite the screening procedures, there is a small chance that they could contract one of these diseases. Finally, the patient was asked to follow completely and fully with all advice and recommended treatments, and that recovery and ultimate outcome are affected by their compliance with recommended treatment. We discussed the risks, benefits and treatment alternatives, and the patient is interested in proceeding with surgery. We will try to set this up as expeditiously as possible. Pain Pain level (0-10): 6 Pain duration: ON AND OFF Pain location: inside (medial) Pain quality: aching Pain timing: night and increases with activity Associated signs & symptoms: none Ambulatory data Ambulatory device: none Treatments Improvement with previous injections: No Improvement with PT: No Improvement with NSAIDS: no Review of Systems Review of Systems: All systems negative unless otherwise noted in HPI.
== END 2024-04-22 08:26 | disposition home or self-care (01) ==
LOC: HODSRG 07:52
PROVIDERS: PCP Orthopaedic Surgery Adult Reconstructive Orthopaedic Surgery; Referring Provider Orthopaedic Surgery Adult Reconstructive Orthopaedic Surgery; Supervising Provider Orthopaedic Surgery Adult Reconstructive Orthopaedic Surgery; Visit Provider Orthopaedic Surgery Adult Reconstructive Orthopaedic Surgery
DX: M17.0 Bilateral primary osteoarthritis of knee (principal); M25.562 Pain in left knee; M25.561 Pain in right knee; Z96.651 Presence of right artificial knee joint
CPT/HCPCS: 99213; G0463

== ENCOUNTER → 2024-05-06 | Outpatient (CLI) | payer MEDICAID, SELFPAY ==
--- NOTE | 2024-05-06 14:30 | XR_ITS ---
Examination: CT left lower extremity, without contrast. 2-D sagittal reconstructions. 2-D coronal reconstructions. 3-D reconstructions. Date and time of exam:May 06, 2024 1424 hours INDICATIONS: Left knee pain years, diagnosis unilateral left knee osteoarthritis CTDI: vol (mGy):20.5 DLP: (mGycm):955 Technique: Multiple 1.25 mm axial sections of the left lower extremity without intravenous contrast have been obtained. 2-D sagittal and coronal reconstructions have been obtained. 3-D reconstructions have been obtained. Low dose protocols were performed. One or more of the following dose reduction techniques were used; automated exposure control, adjustment of the mA and/or KV according to patient size, use of iterative reconstruction technique. Findings: Mild osteopenia Mild narrowing left hip joint No left hip fracture or dislocation No avascular necrosis Severe narrowing medial joint space left knee Significant osteoarthritis lateral joint space left knee Moderate osteoarthritis patellofemoral joint No fracture IMPRESSION: Severe narrowing medial joint space left knee Significant osteoarthritis lateral joint space left knee
== END | disposition home or self-care (01) ==
PROVIDERS: Referring Provider Orthopaedic Surgery Adult Reconstructive Orthopaedic Surgery; Visit Provider Orthopaedic Surgery Adult Reconstructive Orthopaedic Surgery
DX: M17.12 Unilateral primary osteoarthritis, left knee (principal); M25.862 Other specified joint disorders, left knee
CPT/HCPCS: 73700

== ENCOUNTER 2024-05-11 08:00 | Outpatient (RCR) | payer MEDICAID, SELFPAY ==
--- NOTE | 2024-04-18 13:20 | PT.ODAYNRPT ---
PT Outpatient Daily Note OP Daily Note Outpatient Physical Therapy Treatment Date: 04/18/24 Visit Reasons: Right TKA Subjective: Pain with extending the knee Objective: See F/S for therex Assessment: Pain and myofascial tension limits knee extension to about -10 deg Plan: Continue per POC Length of Time (minutes) of Treatment: 30 Minutes Procedure Charges Therapeutic Exercise 30 minutes: Yes
--- NOTE | 2024-04-20 08:27 | PT.ODAYNRPT ---
PT Outpatient Daily Note OP Daily Note Outpatient Physical Therapy Treatment Date: 04/20/24 Visit Reasons: Right TKA Subjective: Doing HEP with pain with extending the knee Objective: See F/S for therex Assessment: Improving extension ROM to about -10 deg. Antalgic gait pattern with flexed knees. Plan: Continue per POC Length of Time (minutes) of Treatment: 30 Minutes Procedure Charges Therapeutic Exercise 30 minutes: Yes
--- NOTE | 2024-04-22 13:53 | PT.ODAYNRPT ---
PT Outpatient Daily Note OP Daily Note Outpatient Physical Therapy Treatment Date: 04/22/24 Visit Reasons: Right TKA Subjective: Pt reports R knee is still stiff and achy. Objective: Please see flow sheet for ther ex list. Assessment: Focus on restoring ROM of R knee to work towards normalizing gait. Plan: Continue with POC. Length of Time (minutes) of Treatment: 30 Minutes Procedure Charges Therapeutic Exercise 30 minutes: Yes
--- NOTE | 2024-04-25 09:40 | PT.ODAYNRPT ---
PT Outpatient Daily Note OP Daily Note Outpatient Physical Therapy Treatment Date: 04/25/24 Visit Reasons: Right TKA Subjective: Doing HEP with pain with extending the knee Objective: See F/S for therex MT: PPM into flexion x7' with 10 sec holds at end-range Assessment: Improving extension ROM to about -6 deg and flexion to 100 with overpressure. Antalgic gait pattern with flexed knees. Plan: Continue per POC Length of Time (minutes) of Treatment: 30 Minutes Procedure Charges Therapeutic Exercise 30 minutes: Yes
--- NOTE | 2024-04-27 09:11 | PT.ODAYNRPT ---
PT Outpatient Daily Note OP Daily Note Outpatient Physical Therapy Treatment Date: 04/27/24 Visit Reasons: Right TKA Subjective: Pt reports R knee is doing ok, has been going to the gym working on strengthening. Pt mentioned that she is going to have her L knee replaced in about four weeks. Objective: Please see flow sheet for ther ex list. Assessment: Pain response limiting range during PROM knee flexion, pt highly guarded. Plan: Continue with pOC. Length of Time (minutes) of Treatment: 30 Minutes Procedure Charges Therapeutic Exercise 30 minutes: Yes
--- NOTE | 2024-05-02 13:36 | PT.ODAYNRPT ---
PT Outpatient Daily Note OP Daily Note Outpatient Physical Therapy Treatment Date: 05/02/24 Visit Reasons: Right TKA Subjective: Pt reports progress with knee movement. Objective: Please see flow sheet for ther ex list. Assessment: Pt instructed on heel toe gait, pt can replicate but presents with knee extension lag during heel strike. Plan: Continue with poC. Length of Time (minutes) of Treatment: 30 Minutes Procedure Charges Therapeutic Exercise 30 minutes: Yes
--- NOTE | 2024-05-04 08:08 | PT.ODAYNRPT ---
PT Outpatient Daily Note OP Daily Note Outpatient Physical Therapy Treatment Date: 05/04/24 Visit Reasons: Right TKA Subjective: Doing HEP with pain with extension and extension Objective: See F/S for therex MT: PPM into flexion x7' with 10 sec holds at end-range Assessment: Improving extension ROM to about -8 deg and flexion to 105 with overpressure. Antalgic gait pattern with flexed knees. Plan: Continue per POC Length of Time (minutes) of Treatment: 30 Minutes Procedure Charges Therapeutic Exercise 30 minutes: Yes
--- NOTE | 2024-05-09 09:09 | PT.ODAYNRPT ---
PT Outpatient Daily Note OP Daily Note Outpatient Physical Therapy Treatment Date: 05/09/24 Visit Reasons: Right TKA Subjective: The knee hurts to bend but it bends more Objective: See F/S for therex Assessment: Improved PROM into knee flexion to 110 degrees with overpressure today Plan: Reassess Length of Time (minutes) of Treatment: 30 Minutes Procedure Charges Therapeutic Exercise 30 minutes: Yes
--- NOTE | 2024-05-11 14:29 | PT.ODS1RPT ---
PT OP Progress/Discharge Note Date of Service: 05/11/24 Progress Note/DC Note Progress Note/Discharge Note: DC Note Patient Information Visit Reasons: Right TKA Service Continue Service or Discharge: Discharge Discharge Date: 05/11/24 Status Subjective: The knee hurts to bend fully but ROM has improved since starting therapy. Pt has other knee scheduled for TKA coming soon. Objective: See F/S for therex R knee ROM: Strength: Flexion: 106 deg 4+/5 Extension: -8 deg 4+/5 Gait: flexed knees Assessment: Pt has attended 12/12 sessions with good progress with therapy goals. She has improved PROM into knee flexion to 110 degrees with overpressure today which is shy of goal but very improved from 78 deg at evaluation. Knee extension has progressed slowly despite manual therapy with overpressure into extension and HEP. Strength of quads and HS has improved to meet that goal. She has TKA scheduled for the other knee and will D/C. Plan: D/C with HEP Procedure Charges Therapeutic Exercise 30 minutes: Yes
== END 2024-05-13 23:59 | disposition home or self-care (01) ==
LOC: CPTX 08:00
PROVIDERS: PCP Orthopaedic Surgery Adult Reconstructive Orthopaedic Surgery; Referring Provider Orthopaedic Surgery Adult Reconstructive Orthopaedic Surgery; Visit Provider Orthopaedic Surgery Adult Reconstructive Orthopaedic Surgery
DX: M25.561 Pain in right knee (principal); Z96.651 Presence of right artificial knee joint; M17.11 Unilateral primary osteoarthritis, right knee
CPT/HCPCS: 97110

== ENCOUNTER 2024-05-23 06:50 | Day surgery (SDC) | payer MEDICAID, SELFPAY ==
[2024-05-20 09:48] VITALS: BMI 31.5
[2024-05-20 11:12] LABS: Basophils % (Auto) 0 % (0-2.5); Eosinophils # (Auto) 0.3 Thou/mm3 (0.0-0.5); Eosinophils % (Auto) 4 % (0-10); Hematocrit 38.3 % (36.0-46.0); Hemoglobin 12.6 g/dL (12.0-16.0); Immature Granulocytes % (Auto) 0 % (0-0); Immature Granulocytes Auto 0.03 Thou/mm3 (0.00-0.00); Lymphocytes # (Auto) 1.7 Thou/mm3 (1.0-4.8); Lymphocytes % (Auto) 24 % (10-50); Mean Corpuscular HGB Conc 32.9 g/dl (31.0-37.0); Mean Corpuscular Hemoglobin 28.8 pg (25.0-35.0); Mean Corpuscular Volume 87 fL (80-100); Monocytes # (Auto) 0.5 Thou/mm3 (0.0-0.8); Monocytes % (Auto) 7 % (0-12); Neutrophils # (Auto) 4.4 Thou/mm3 (1.8-7.7); Neutrophils % (Auto) 64 % (37-80); Nucleated Red Blood Cell % 0 /100 WBC (0); Platelet Count 293 Thou/mm3 (140-440); RDW Standard Deviation 40.5 fL (36.4-46.3); Red Blood Count 4.38 Miln/mm3 (4.00-5.20); White Blood Count 6.9 Thou/mm3 (3.6-11.0)
[2024-05-20 11:18] LABS: Partial Thromboplastin Time 24.2 Seconds (22.0-36.0); Prothrombin Time 10.8 Seconds (9.0-12.2)
[2024-05-20 11:19] LABS: Anion Gap 5 (7-16); BUN/Creatinine Ratio 16 Ratio (12-20); Blood Urea Nitrogen 11 mg/dL (9-23); Calcium 9.2 mg/dL (8.3-10.6); Carbon Dioxide 28.8 mMol/L (20.0-31.0); Chloride 108 mMol/L (98-107); Creatinine (Component) 0.7 mg/dL (0.6-1.3); Estimated Creatinine Clearance 102.7 mL/min (>60); Glucose 59 mg/dL (74-106); Osmolality,Calculated 280 (275-295); Potassium 4.2 mMol/L (3.4-5.1); Sodium 142 mMol/L (136-145); eGFR > 60 See Note
[2024-05-23] VITALS (10 sets, daily range): BP systolic 100–123; BP diastolic 61–79; PULSE 68–79; RESP 14–20; TEMP 36.2–36.7; O2SAT 94–100; BMI 31.2
[2024-05-23] MEDS: RINGERS LACTATED 1000 ML 1,000 ML 20 ML IV (09:55)
[2024-05-23] MEDS: ACETAMINOPHEN 325 MG TABLET 650 MG PO (09:55)
[2024-05-23] MEDS: MELOXICAM 7.5 MG TABLET PO (09:56)
[2024-05-23] MEDS: PREGABALIN 75 MG CAPSULE PO (09:56)
[2024-05-23] MEDS: SCOPOLAMINE 1 MG TDSY TOP (10:20)
[2024-05-23] MEDS: ALBUTEROL/IPRATROPIUM (Duoneb) RT SOL 3 ML NEBU INH (10:20)
--- NOTE | 2024-05-23 13:16 | XR_ITS ---
Examination: Left knee 2 views Technique one AP lateral left knee 2 views Exam date and time: May 23, 2024 1425 hours INDICATIONS: Postop knee replacement FINDINGS: Total left knee arthroplasty. Satisfactory alignment No fracture IMPRESSION: Total left knee arthroplasty with satisfactory alignment
--- NOTE | 2024-05-23 13:19 | PD.SUROPNT ---
Date of Procedure 05/23/24 Pre Op Diagnosis left knee osteoarthritis Post Op Diagnosis left knee osteoarthritis Procedure left total knee replacement Findings full thickness cartilage loss and osteophytes Procedure Description Indication: The patient is a 48 year old who has a long history of left knee pain. X-rays show degenerative arthritis involving the knee. Over the past several years the patient has had increasing pain, progressive limitation in function. He has failed conservative measures including activity modification, physical therapy, injections, anti-inflammatories, and assistive devices. After a lengthy discussion of the risks and benefits, the patient presents now for total knee replacement. We discussed a nickel free knee replacement given her history. The nature and purpose of the total knee replacement, alternative method(s) of treatment, the material risks involved, and the possibility of complications were fully explained to the patient. The patient was told the most common risks and complications associated with a total knee replacement include, but are not limited to blood clots in the leg, fatal pulmonary embolism, dislocation of the prosthesis, intraoperative and postoperative fractures of the femur or tibia, infection, failure of the prosthesis or grafting materials, complications from anesthesia, reactions to blood transfusions, postoperative leg length inequality, instability of the knee replacement, nerve damage or injury, vascular injury, delayed wound healing, infections, other injury or even . In addition, there are risks associated with anesthesia given during this operation, temporary or permanent numbness on the skin lateral to the incision can be a complication unique to total knee surgery, and kneeling can be painful after knee replacement surgery. Also, the patient was told that after undergoing a total knee replacement there may still be pain or disability. We discussed with the patient that we will be using a robot-assisted technology. We discussed that there is a possibility of converting to manual instrumentation. The patient was informed that the success of this operation in part depends upon the mechanical devices which are going to be implanted and that these devices can fail or malfunction, and may need to be repaired or replaced and there are no guarantees as to the longevity of this device or its part and that it or its parts could fail prematurely. Finally, the patient was asked to follow completely and fully with all advice and recommended treatments, and that recovery and ultimate outcome are affected by their compliance with recommended treatment. Surgical technique: Patient was marked and consented in the pre-operative area. The patient was brought to the operating room and placed on the operating table in a supine position. Prior to positioning, a timeout procedure was performed between the surgeon, the anesthesiologist, and the nursing staff where the patient and the operative side were identified and confirmed. After adequate general anesthetic was obtained, the left lower extremity was prepped and draped in the usual sterile fashion. A weight based dose of Cefazolin were administered within 1 hour prior to incision. The robot was preregistered and calirated before the incision. The extremity was exsanguinated with an esmarch badge and tourniquet inflated to 250mmHg. A midline incision was made. A median parapatellar arthrotomy was made. The patella was subluxed laterally. A medial release was performed to expose the medial tibia. His femoral and tibial pins were placed through an intra incisional manner for both cases. Every effort was made to ensure that the distalmost aspect of the pin was hung in the second cortex. The arrays were then tightened several times to ensure that it was fixed for the remainder of the case. Both femoral and tibial checkpoints were then placed. We then went through the registration process of the bone. We then assessed the knee deformity and attempted to correct it. We also used the robot to aid in judging laxity in both extension and flexion. Final based on laxity and alignment we changed the preoperative assessment to obtain proper proper implant positioning and to correct deformity. Attention was then placed to the tibia. We made a tibial cut using the robot ensuring that both the MCL and the patella tendon were protected with retractors. We then went to the femur and made the posterior cut followed by the anterior cut and the anterior chamfer. The bone was then removed and we made a distal femur cut and a posterior chamfer cut. We verified all cuts. A trial reduction was performed with a size marnie femoral component and a keeled tibial component. The patella tracked centrally, and no lateral retinacular release was necessary. The trial implants were removed. The arrays, pins, and checkpoints were all removed. We performed a verification that all pins were removed. The cut bone surfaces were lavaged. A Marnie nickel free femoral component, and a keeled tibial component were impacted into position using 2 bags of palacos. The knee was left in extension until the cement hardened. The knee was felt to be well balanced in the sagittal and coronal plane. The final 11mm cruciate-substituting articular insert was impacted into the tibial tray. The knee was brought out to full extension, flexed up to 120 degrees. It was stable to varus and valgus stress and appropriately balanced in flexion and extension. The wounds were copiously irrigated following deflation of tourniquet. The medial retinaculum was reapproximated with #1 vicryl and quill. The subcutaneous tissues were closed with 0 and 2-0 interrupted Vicryl. The skin was closed with 3-0 Monofilament V loc suture. A sterile dressing was applied. The patient was transferred to a bed and brought to recovery in stable condition. The patient tolerated the procedure well. There were no intraoperative complications. Sponge and needle counts were correct times 2. As the attending surgeon, I attest I was present and performed the entire operation. Anesthesia GETA Implants marnie nickel free 7 femur, D tibia, 10mm CR poly Pathology / specimen None Pathology comment: none Estimated Blood Loss 150 Disposition same day Surgeon Marshall Abel MD Surgical Staff Operation Date: 05/23/24 10:15 Case Staff ATM TECHNICIAN: Leno Guy RNgold frame assembler: Renetta Guthrie
--- NOTE | 2024-05-23 14:05 | SUR.PHASEI ---
pt received from OR in recovery bay 1. pt obtunded, breathing unlabord on 6l oxymask, oral airway in place. v/s stable. pt dressing to left lower extremity cdi. report received from Dariusz Mosley and Leno HOLGUIN.
[2024-05-23] MEDS: CYCLObenzaPRINE 5 MG TABLET 10 MG PO (15:24)
[2024-05-23] MEDS: oxyCODONE HCL 5 MG IR TAB PO (15:25)
--- NOTE | 2024-05-23 15:30 | SUR.PHASEII ---
pt able to tolerate oral fluids without difficulty swallowing or nausea/vomiting.
--- NOTE | 2024-05-23 16:25 | SUR.PHASEII ---
pt awake and alert, breathing unlabored on room air. v/s stable. pt dressing to lower left extremity cdi. pt cleared by physical therapist Mathew. pt able to ambulate to wheelchair with steady gait. d/c instructions given Mark in room, all questions answered. pt d/c via wheelchair with all belongings.
== END 2024-05-23 16:25 | disposition home or self-care (01) ==
PROVIDERS: PCP Family Medicine; Referring Provider Orthopaedic Surgery Adult Reconstructive Orthopaedic Surgery; Visit Provider Orthopaedic Surgery Adult Reconstructive Orthopaedic Surgery
PROC: (CPT 27447; principal; 2024-05-23 10:00)
DX: M17.12 Unilateral primary osteoarthritis, left knee (principal); M25.762 Osteophyte, left knee
CPT/HCPCS: 27447; 20985; 36415; 73560; 80048; 85025; 85610; 85730; 97162; A4217; A9270; C1776; J0690; J1100; J2250; J2270; J2371; J2405; J2704; J2765; J2795; J3010; J3490; J7030; J7120

== ENCOUNTER 2024-06-07 08:44 | Outpatient (RCR) | payer MEDICAID, SELFPAY ==
--- NOTE | 2024-06-07 09:09 | PT.OIERPT ---
PT OP Initial Eval Patient Information Outpatient Physical Therapy Treatment Date: 06/07/24 Visit Reasons: Left knee surgery Medical Diagnosis: Z96.652 Treatment Dx #1: Dec L knee ROM Treatment Dx #2: L knee ROM Start of Care: 06/07/24 Date of Onset: 05/23/24 DOS Smoking Status Smoking Status: Never smoker Initial Assessment Subjective: Pt is 48 yr old female s/p L TKA presents ambulating with FWW and reports knee pain and difficulty bending it. She is ambulating at home and limited community distances. PMH: lumbar DDD, anxiety, allergies Pt goal: to be able to walk without walker normal distances Objective: L knee AROM: ? Flexion: 80 deg ? Extension: -5 deg ? SLR: ? 45 deg ? Strength: ? Quads and hamstrings 3-/5 ? Antalgic gait pattern with decreased WB tolerance on L LE Assessment: Pt presentation consistent with post op L TKA with decreased ROM, strength ? and WB tolerance. Pt lacks a few degrees of knee extension and flexion is limited by ? myofascial limitations and pain.? Pt requires skilled therapy to improve ROM ? and strength and has good rehab potential.? Eval followed by HEP with printout. 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 Independent with HEP 2. Improved knee ROM to full extension to 115 deg flexion 3. Improved quad and hamstring strength to 4+/5 4. Improved ambulatory tolerance to community distances with symmetrical ?? gait pattern.??? Treatment Plan ? 1. Manual therapy ? 2. Therex ? 3. Modalities as indicated, moist heat, ice, estim Frequency and Duration: 2-3x a week for 18 visits Certification Dates: 06/07/24 to 09/04/24 Procedure Charges OP PT Eval Mod Complex 30 minutes: Yes
== END 2024-06-10 23:59 | disposition home or self-care (01) ==
LOC: CPTX 08:44
PROVIDERS: PCP Orthopaedic Surgery Adult Reconstructive Orthopaedic Surgery; Referring Provider Orthopaedic Surgery Adult Reconstructive Orthopaedic Surgery; Visit Provider Orthopaedic Surgery Adult Reconstructive Orthopaedic Surgery
DX: M25.562 Pain in left knee (principal); Z96.652 Presence of left artificial knee joint
CPT/HCPCS: 97162

== ENCOUNTER 2024-06-07 09:35 | Outpatient (AMB) | payer MEDICAID, SELFPAY ==
--- NOTE | 2024-06-07 10:25 | ORTHONT_ITS ---
Vital signs 06/07/24 10:27 Height 1.63 m Height Method Stated Weight 82.582 kg Weight Measurement Method Standing Scale BMI 31.1 BP 132/90 H Blood Pressure Source Automatic Cuff Blood Pressure Location Left Upper Arm Position Sitting Respiration 18 Pulse 55 L Pulse Source Monitor Temp 98.0 F Temp Source Temporal Artery Scan Pulse Oximetry (%) 97 Oxygen Delivery Method Room Air Med/Allergies Allergies & Medications Allergies codeine Allergy (Intermediate, Verified 06/07/24 10:33) NAUSEA hydromorphone Allergy (Intermediate, Verified 06/07/24 10:33) VOMITING, ITCHING latex Allergy (Intermediate, Verified 06/07/24 10:33) RASH,SWELLING Sulfa (Sulfonamide Antibiotics) Allergy (Intermediate, Verified 06/07/24 10:33) ITCHING, NAUSEA, AND VOMITTING sulfamethoxazole Allergy (Intermediate, Verified 06/07/24 10:33) RASH trimethoprim Allergy (Intermediate, Verified 06/07/24 10:33) RASH mika Allergy (Uncoded 06/07/24 10:33) Medication Reconciliation naproxen sodium 220 mg tablet (Aleve) 440 mg PO BID PRN Pain (Scale Score 4-6) 03/03/24 [History Confirmed 06/07/24] budesonide-formoterol HFA 160 mcg-4.5 mcg/actuation aerosol inhaler (Symbicort) 1 inh inhalation BID 03/08/24 [History Confirmed 06/07/24] omega-3 fatty acids-vitamin E 1,000 mg capsule 1 cap PO QDAY 03/08/24 [History Confirmed 06/07/24] gabapentin 300 mg capsule 300 mg PO .qhs #30 caps 04/22/24 [Rx Confirmed 0 06/07/24] ibuprofen 600 mg tablet 600 mg PO Q6H PRN pain #60 tabs 05/11/24 [Rx Confirmed 06/07/24] acetaminophen 500 mg tablet (Acetaminophen Extra Strength) 1,000 mg (2 x 500 mg) PO Q6H PRN pain #90 tabs 05/23/24 [Rx Confirmed 06/07/24] aspirin 81 mg tablet,delayed release 81 mg PO BID #60 tabs 05/23/24 [Rx Confirmed 06/07/24] cyclobenzaprine 5 mg tablet 5 mg PO TID PRN muscle spasm #30 tabs 05/23/24 [Rx Confirmed 06/07/24] doxycycline hyclate 100 mg tablet 100 mg PO BID #14 tabs 05/23/24 [Rx Confirmed 06/07/24] gabapentin 300 mg capsule 300 mg PO .qhs #30 caps 05/23/24 [Rx Confirmed 06/07/24] oxycodone 5 mg tablet 5 mg PO Q6H PRN pain #28 tabs 05/23/24 [Rx Confirmed 06/07/24] sennosides 8.6 mg-docusate sodium 50 mg tablet (Senna-S) 1 tab-cap PO QDAY #30 tabs 05/23/24 [Rx Confirmed 06/07/24] oxycodone 5 mg tablet 5 mg PO Q6H PRN pain #28 tabs 05/31/24 [Rx Confirmed 06/07/24] Exam Exam Patient is in no acute distress and is cooperative with the examination today. Breathing is nonlabored. In no respiratory distress. Bilateral extremities were evaluated and demonstrates sensation intact to light touch. Palpable pedal pulses are present. No significant edema is present. Bilateral hips were examined. The patient has no pain with log roll of the hips. Internal rotation to 30 degrees and external rotation to 30 degrees is painless. Negative FADIR. Left knee incision is clean dry and intact Assessment and Plan Problem List (1) Degenerative arthritis of knee, bilateral: Status: Acute Plan: Patient is a pleasant 48-year-old female with bilateral knee pain bilateral knee arthritis. He is doing well status post left total knee replacement. Will send her some refills on medications. We will see her back in 4 weeks for routine follow-up with x-rays Office Procedures GNS Level of Care Nursing/Assessment Patient Status: Established Patient Nursing Assessment/Reassesment: Medication Reconciliation, Update PMH in EMR and Vital Signs Coordination of Care: Complex Care and Chronic Disease 1-5, Education Complex Pt/Fam, Consent,records obtained, informed consent, Results/Orders obtained and Staff clarify orders Established Patient Charge Established Patient Point Assignment: 95 Established Patient Point Charge: EP Level 3 (80-115) MA Intake Visit Data Collection New Patient or Established: Established Patient (seen at [facility] within 3 years) Reason for Visit:: 2 WEEK POST OP TKA Seen by Clinical Staff ONLY (RN/MA): No Verbal consent obtained for Telemed visit?: No Parts Expediter Required: No PCP or OBGYN visit in last 3 months: Yes Hx Now: No Do You Feel Safe at Home: Yes Authorities Contacted: N/A Questionairres Past Medical History Past Medical History Have you ever been diagnosed with any of the following: Neurological Problems Seizures: No Migraine: Yes Cardiology Problems Congestive Heart Failure: No Hypertension: No Respiratory Problems Chronic Obstructive Pulmonary Disease (COPD): No Asthma: Yes (USES SYMBICORT) Smoking: Yes (THC) Smoking Exposure: Yes Stomache/Intestinal Problems Mario's Esophagus: Yes Gastroesophageal Reflux Disease: Yes (OTC OMEPRAZOLE PRN) Genital/Urinary Problems Renal Disease: No Kidney Stones: Yes Reproductive Problems Previous Pregnancies: Yes (X2) Musculoskeletal Problems Arthritis: Yes (BILATERAL KNEES) Degenerative Disk Disease: Yes Endocrine Problems Diabetes Mellitus Type 1: No Diabetes Mellitus Type 2: No Psychologic Problems Depression: Yes (NO MEDS. USES CANNABIS) Anxiety: Yes (NO MEDS) Other Problems Hospitalization: No Shingles: No Falls: No Blood Transfusions: No Blood Transfusion Reaction: No Anesthesia Reactions: No Cancer: No Surgical History Hysterectomy: Yes Subjective Visit Visit for: follow up visit, post op #1 and knee Immunization / Flu Flu Vaccine in the Last 12 Months: No Flu Vaccine Exclusion Criteria: No Exclusion Criteria History of Present Illness Chief complaint: 2 WEEK POST OP TKA Mojgan is doing well 2 weeks status post left total knee replacement. She has some pain and would like a refill. She is doing much better than her other knee Pain Pain level (0-10): 9 Pain duration: ALL DAY Pain location: inside (medial), outside (lateral) and anterior Pain quality: sharp Pain timing: increases with activity Ambulatory data Ambulatory device: walker Treatments Improvement with previous injections: No Improvement with PT: No Improvement with NSAIDS: no Review of Systems Review of Systems: All systems negative unless otherwise noted in HPI.
[2024-06-07 10:27] VITALS: BP 132/90; PULSE 55; RESP 18; TEMP 36.7; O2SAT 97; BMI 31.1
== END 2024-06-07 10:36 | disposition home or self-care (01) ==
LOC: HODSRG 09:35
PROVIDERS: PCP Family Medicine; Referring Provider Family Medicine; Supervising Provider Orthopaedic Surgery Adult Reconstructive Orthopaedic Surgery; Visit Provider Orthopaedic Surgery Adult Reconstructive Orthopaedic Surgery
DX: M17.0 Bilateral primary osteoarthritis of knee (principal); M25.562 Pain in left knee; M25.561 Pain in right knee; Z96.652 Presence of left artificial knee joint
CPT/HCPCS: 99213; G0463

== ENCOUNTER 2024-07-05 09:34 | Outpatient (AMB) | payer MEDICAID, SELFPAY ==
[2024-07-05 09:44] VITALS: BP 121/88; PULSE 87; RESP 19; TEMP 36.8; O2SAT 98; BMI 30.2
--- NOTE | 2024-07-05 09:44 | PD.ORTHCLVIS ---
Vital signs 07/05/24 09:44 Height 1.63 m Height Method Measured Weight 80.456 kg Weight Measurement Method Standing Scale BMI 30.2 BP 121/88 H Blood Pressure Source Automatic Cuff Blood Pressure Location Right Upper Arm Position Sitting Respiration 19 Pulse 87 Pulse Source Monitor Temp 98.3 F Temp Source Oral Pulse Oximetry (%) 98 Oxygen Delivery Method Room Air Med/Allergies Allergies & Medications Allergies codeine Allergy (Intermediate, Verified 07/05/24 09:45) NAUSEA hydromorphone Allergy (Intermediate, Verified 07/05/24 09:45) VOMITING, ITCHING latex Allergy (Intermediate, Verified 07/05/24 09:45) RASH,SWELLING Sulfa (Sulfonamide Antibiotics) Allergy (Intermediate, Verified 07/05/24 09:45) ITCHING, NAUSEA, AND VOMITTING sulfamethoxazole Allergy (Intermediate, Verified 07/05/24 09:45) RASH trimethoprim Allergy (Intermediate, Verified 07/05/24 09:45) RASH mika Allergy (Uncoded 07/05/24 09:45) Medication Reconciliation naproxen sodium 220 mg tablet (Aleve) 440 mg PO BID PRN Pain (Scale Score 4-6) 03/03/24 [History Confirmed 07/05/24] budesonide-formoterol HFA 160 mcg-4.5 mcg/actuation aerosol inhaler (Symbicort) 1 inh inhalation BID 03/08/24 [History Confirmed 07/05/24] omega-3 fatty acids-vitamin E 1,000 mg capsule 1 cap PO QDAY 03/08/24 [History Confirmed 07/05/24] aspirin 81 mg tablet,delayed release 81 mg PO BID #60 tabs 05/23/24 [Rx Confirmed 07/05/24] doxycycline hyclate 100 mg tablet 100 mg PO BID #14 tabs 05/23/24 [Rx Confirmed 07/05/24] sennosides 8.6 mg-docusate sodium 50 mg tablet (Senna-S) 1 tab-cap PO QDAY #30 tabs 05/23/24 [Rx Confirmed 07/05/24] oxycodone 5 mg tablet 5 mg PO Q6H PRN pain #28 tabs 06/07/24 [Rx Confirmed 07/05/24] acetaminophen 500 mg tablet (Acetaminophen Extra Strength) 1,000 mg (2 x 500 mg) PO Q6H PRN pain #90 tabs 06/16/24 [Rx Confirmed 07/05/24] gabapentin 300 mg capsule 300 mg PO .qhs #30 caps 06/16/24 [Rx Confirmed 07/05/24] ibuprofen 600 mg tablet 600 mg PO Q6H PRN pain #60 tabs 06/16/24 [Rx Confirmed 07/05/24] oxycodone 5 mg tablet 5 mg PO Q6H PRN pain #28 tabs 06/23/24 [Rx Confirmed 07/05/24] cyclobenzaprine 5 mg tablet 5 mg PO TID PRN muscle spasm #30 tabs 07/01/24 [Rx Confirmed 07/05/24] gabapentin 300 mg capsule 300 mg PO .qhs #30 caps 07/01/24 [Rx Confirmed 07/05/24] Exam Exam Patient is in no acute distress and is cooperative with the examination today. Breathing is nonlabored. In no respiratory distress. Bilateral extremities were evaluated and demonstrates sensation intact to light touch. Palpable pedal pulses are present. No significant edema is present. Bilateral hips were examined. The patient has no pain with log roll of the hips. Internal rotation to 30 degrees and external rotation to 30 degrees is painless. Negative FADIR. Left knee incision is clean dry and intact. Range of motion is 0 to 100 degrees Assessment and Plan Problem List (1) Degenerative arthritis of knee, bilateral: Status: Acute Plan: Patient is a pleasant 48-year-old female with bilateral knee pain bilateral knee arthritis. SHe is doing well status post left total knee replacement. Her range of motion is great. She can skip physical therapy. We will see her in 6 weeks with new x-rays Office Procedures GNS Level of Care Nursing/Assessment Patient Status: Established Patient Nursing Assessment/Reassesment: Update PMH in EMR and Vital Signs Coordination of Care: Complex Care/Chronic Disease 5 or more, Education Complex Pt/Fam, Consent,records obtained, informed consent, 1 Ins Authorization and Staff clarify orders Established Patient Charge Established Patient Point Assignment: 110 Established Patient Point Charge: EP Level 3 (80-115) MA Intake Visit Data Collection New Patient or Established: Established Patient (seen at [facility] within 3 years) Reason for Visit:: 6 WEEK POST OP LEFT TKA Cleaning Maid Required: No Do You Feel Safe at Home: Yes Questionairres Past Medical History Past Medical History Have you ever been diagnosed with any of the following: Neurological Problems Seizures: No Migraine: Yes Cardiology Problems Congestive Heart Failure: No Hypertension: No Respiratory Problems Chronic Obstructive Pulmonary Disease (COPD): No Asthma: Yes (USES SYMBICORT) Smoking: Yes (THC) Smoking Exposure: Yes Stomache/Intestinal Problems Mario's Esophagus: Yes Gastroesophageal Reflux Disease: Yes (OTC OMEPRAZOLE PRN) Genital/Urinary Problems Renal Disease: No Kidney Stones: Yes Reproductive Problems Previous Pregnancies: Yes (X2) Musculoskeletal Problems Arthritis: Yes (BILATERAL KNEES) Degenerative Disk Disease: Yes Endocrine Problems Diabetes Mellitus Type 1: No Diabetes Mellitus Type 2: No Psychologic Problems Depression: Yes (NO MEDS. USES CANNABIS) Anxiety: Yes (NO MEDS) Other Problems Hospitalization: No Shingles: No Falls: No Blood Transfusions: No Blood Transfusion Reaction: No Anesthesia Reactions: No Cancer: No Surgical History Hysterectomy: Yes Subjective Visit Visit for: post op #2 and knee Immunization / Flu Flu Vaccine in the Last 12 Months: No Flu Vaccine Exclusion Criteria: No Exclusion Criteria History of Present Illness Chief complaint: 6 WEEK POST OP LEFT TKA; PATIENT FELL Mojgan is 6 weeks out from a left total knee replacement. She is doing well. She had a fall recently. She is doing home exercises at home. She does not feel that she needs to go to physical therapy. Personal History Red flag PMH: none BMI Counceling provided: Yes Pain Pain level (0-10): 7 Pain duration: INTERMITTENT Pain timing: night Ambulatory data Ambulatory device: none Review of Systems Review of Systems: All systems negative unless otherwise noted in HPI.
--- NOTE | 2024-07-05 09:53 | XR_ITS ---
Examination: Bilateral knees 2 views Right lateral knee left lateral knee 2 views Bilateral axial knees single view Exam date and time: 30/08/2024 1001 hours INDICATIONS: Left knee replacement May 2024 right knee replacement February 2024 TECHNIQUE: Bilateral AP knees standing single view, bilateral PA knees standing single view flexion Standing right lateral knee left lateral knee 2 views Bilateral axial knees single view total 5 views FINDINGS: Mild osteopenia. Bilateral total knee arthroplasties. Satisfactory alignment. No loosening of the prosthetic components No fractures, no patellar dislocation IMPRESSION: Bilateral total knee arthroplasties with satisfactory alignment
== END 2024-07-05 10:01 | disposition home or self-care (01) ==
LOC: HODSRG 09:34
PROVIDERS: Supervising Provider Orthopaedic Surgery Adult Reconstructive Orthopaedic Surgery; Visit Provider Orthopaedic Surgery Adult Reconstructive Orthopaedic Surgery
DX: M17.0 Bilateral primary osteoarthritis of knee (principal); M25.562 Pain in left knee; M25.561 Pain in right knee; Z96.652 Presence of left artificial knee joint
CPT/HCPCS: 73564; 99213; G0463

== ENCOUNTER 2024-09-06 08:42 | Outpatient (AMB) | payer MEDICAID, SELFPAY ==
[2024-09-06 08:51] VITALS: BP 126/83; PULSE 79; RESP 17; TEMP 36.7; O2SAT 95; BMI 30.9
--- NOTE | 2024-09-06 08:51 | ORTHONT_ITS ---
Vital signs 09/06/24 08:51 Height 1.63 m Height Method Stated Weight 82.157 kg Weight Measurement Method Standing Scale BMI 30.9 BP 126/83 Blood Pressure Source Automatic Cuff Blood Pressure Location Left Upper Arm Position Sitting Respiration 17 Pulse 79 Pulse Source Monitor Temp 98.1 F Temp Source Temporal Artery Scan Pulse Oximetry (%) 95 Oxygen Delivery Method Room Air Med/Allergies Allergies & Medications Allergies codeine Allergy (Intermediate, Verified 09/06/24 08:52) NAUSEA hydromorphone Allergy (Intermediate, Verified 09/06/24 08:52) VOMITING, ITCHING latex Allergy (Intermediate, Verified 09/06/24 08:52) RASH,SWELLING Sulfa (Sulfonamide Antibiotics) Allergy (Intermediate, Verified 09/06/24 08:52) ITCHING, NAUSEA, AND VOMITTING sulfamethoxazole Allergy (Intermediate, Verified 09/06/24 08:52) RASH trimethoprim Allergy (Intermediate, Verified 09/06/24 08:52) RASH mika Allergy (Uncoded 09/06/24 08:52) Medication Reconciliation naproxen sodium 220 mg tablet (Aleve) 440 mg PO BID PRN Pain (Scale Score 4-6) 03/03/24 [History Confirmed 09/06/24] budesonide-formoterol HFA 160 mcg-4.5 mcg/actuation aerosol inhaler (Symbicort) 1 inh inhalation BID 03/08/24 [History Confirmed 09/06/24] omega-3 fatty acids-vitamin E 1,000 mg capsule 1 cap PO QDAY 03/08/24 [History Confirmed 09/06/24] aspirin 81 mg tablet,delayed release 81 mg PO BID #60 tabs 05/23/24 [Rx Confir med 09/06/24] doxycycline hyclate 100 mg tablet 100 mg PO BID #14 tabs 05/23/24 [Rx Confirmed 09/06/24] sennosides 8.6 mg-docusate sodium 50 mg tablet (Senna-S) 1 tab-cap PO QDAY #30 tabs 05/23/24 [Rx Confirmed 09/06/24] oxycodone 5 mg tablet 5 mg PO Q6H PRN pain #28 tabs 06/07/24 [Rx Confirmed 09/06/24] acetaminophen 500 mg tablet (Acetaminophen Extra Strength) 1,000 mg (2 x 500 mg) PO Q6H PRN pain #90 tabs 06/16/24 [Rx Confirmed 09/06/24] gabapentin 300 mg capsule 300 mg PO .qhs #30 caps 06/16/24 [Rx Confirmed 09/06/24] ibuprofen 600 mg tablet 600 mg PO Q6H PRN pain #60 tabs 06/16/24 [Rx Confirmed 09/06/24] oxycodone 5 mg tablet 5 mg PO Q6H PRN pain #28 tabs 06/23/24 [Rx Confirmed 09/06/24] cyclobenzaprine 5 mg tablet 5 mg PO TID PRN muscle spasm #30 tabs 07/01/24 [Rx Confirmed 09/06/24] gabapentin 300 mg capsule 300 mg PO .qhs #30 caps 07/01/24 [Rx Confirmed 09/06/24] Exam Exam Patient is in no acute distress and is cooperative with the examination today. Breathing is nonlabored. In no respiratory distress. Bilateral extremities were evaluated and demonstrates sensation intact to light touch. Palpable pedal pulses are present. No significant edema is present. Bilateral hips were examined. The patient has no pain with log roll of the hips. Internal rotation to 30 degrees and external rotation to 30 degrees is painless. Negative FADIR. Left knee incision is clean dry and intact. Range of motion is 0 to 100 degrees Assessment and Plan Problem List (1) Degenerative arthritis of knee, bilateral: Status: Acute Plan: Patient is a pleasant 48-year-old female with bilateral knee pain bilateral knee arthritis. SHe is doing well status post left total knee replacement. Her range of motion is great. Will see her in 6 months for routine follow-up Office Procedures GNS Level of Care Nursing/Assessment Patient Status: Established Patient Nursing Assessment/Reassesment: Medication Reconciliation, Update PMH in EMR and Vital Signs Coordination of Care: Complex Care and Chronic Disease 1-5, Consent,records obtained, informed consent, Education Simp Pt/Fam, Results/Orders obtained and Staff clarify orders Established Patient Charge Established Patient Point Assignment: 90 Established Patient Point Charge: EP Level 3 (80-115) MA Intake Visit Data Collection New Patient or Established: Established Patient (seen at [facility] within 3 years) Reason for Visit:: FU LT KNEE TKA Seen by Clinical Staff ONLY (RN/MA): 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 PCP or OBGYN visit in last 3 months: Yes Hx Now: No Do You Feel Safe at Home: Yes Authorities Contacted: N/A Questionairres Past Medical History Past Medical History Have you ever been diagnosed with any of the following: Neurological Problems Seizures: No Migraine: Yes Cardiology Problems Congestive Heart Failure: No Hypertension: No Respiratory Problems Chronic Obstructive Pulmonary Disease (COPD): No Asthma: Yes (USES SYMBICORT) Smoking: Yes (THC) Smoking Exposure: Yes Stomache/Intestinal Problems Mario's Esophagus: Yes Gastroesophageal Reflux Disease: Yes (OTC OMEPRAZOLE PRN) Genital/Urinary Problems Renal Disease: No Kidney Stones: Yes Reproductive Problems Previous Pregnancies: Yes (X2) Musculoskeletal Problems Arthritis: Yes (BILATERAL KNEES) Degenerative Disk Disease: Yes Endocrine Problems Diabetes Mellitus Type 1: No Diabetes Mellitus Type 2: No Psychologic Problems Depression: Yes (NO MEDS. USES CANNABIS) Anxiety: Yes (NO MEDS) Other Problems Hospitalization: No Shingles: No Falls: No Blood Transfusions: No Blood Transfusion Reaction: No Anesthesia Reactions: No Cancer: No Surgical History Hysterectomy: Yes Subjective Visit Visit for: follow up visit and post op #3 (FU LT KNEE TKA ) Immunization / Flu Flu Vaccine in the Last 12 Months: No Flu Vaccine Exclusion Criteria: Refused by Patient History of Present Illness Chief complaint: 12 WEEK POST OP LEFT TKA; PATIENT FELL Mojgan is 6 weeks out from a left total knee replacement. She is doing well. She is 3 months out and is doing well Personal History Red flag PMH: none BMI Counceling provided: Yes Pain Pain level (0-10): 3 Pain duration: 05/2024 Pain location: anterior Pain quality: dull and aching Pain timing: night Associated signs & symptoms: none Ambulatory data Ambulatory device: none Walking distance (minutes): 1 Treatments Number of previous injections: 8 (BEFORE SURGERY ) Improvement with previous injections: No Number of Physical Therapy sessions: 12 (AFTER SURGERY ) Improvement with PT: Yes Improvement with NSAIDS: n/a Review of Systems Review of Systems: All systems negative unless otherwise noted in HPI.
== END 2024-09-06 09:13 | disposition home or self-care (01) ==
LOC: HODSRG 08:42
PROVIDERS: Supervising Provider Orthopaedic Surgery Adult Reconstructive Orthopaedic Surgery; Visit Provider Orthopaedic Surgery Adult Reconstructive Orthopaedic Surgery
DX: M17.0 Bilateral primary osteoarthritis of knee (principal); M25.562 Pain in left knee; M25.561 Pain in right knee; Z96.652 Presence of left artificial knee joint
CPT/HCPCS: 99213; G0463

== ENCOUNTER 2025-03-07 07:51 | Outpatient (AMB) | payer MEDICAID, SELFPAY ==
--- NOTE | 2025-03-07 08:07 | PD.ORTHCLVIS ---
Vital signs 03/07/25 08:08 Height 1.63 m Height Method Measured Weight 87.288 kg Weight Measurement Method Standing Scale BMI 32.8 BP 124/81 Blood Pressure Source Automatic Cuff Blood Pressure Location Left Upper Arm Position Sitting Respiration 18 Pulse 68 Pulse Source Monitor Temp 97.5 F Temp Source Temporal Artery Scan Pulse Oximetry (%) 96 Oxygen Delivery Method Room Air Med/Allergies Allergies & Medications Allergies codeine Allergy (Intermediate, Verified 03/07/25 08:08) NAUSEA hydromorphone Allergy (Intermediate, Verified 03/07/25 08:08) VOMITING, ITCHING latex Allergy (Intermediate, Verified 03/07/25 08:08) RASH,SWELLING Sulfa (Sulfonamide Antibiotics) Allergy (Intermediate, Verified 03/07/25 08:08) ITCHING, NAUSEA, AND VOMITTING sulfamethoxazole Allergy (Intermediate, Verified 03/07/25 08:08) RASH trimethoprim Allergy (Intermediate, Verified 03/07/25 08:08) RASH mika Allergy (Uncoded 03/07/25 08:08) Medication Reconciliation naproxen sodium 220 mg tablet (Aleve) 440 mg PO BID PRN Pain (Scale Score 4-6) 03/03/24 [History Confirmed 03/07/25] budesonide-formoterol HFA 160 mcg-4.5 mcg/actuation aerosol inhaler (Symbicort) 1 inh inhalation BID 03/08/24 [History Confirmed 03/07/25] omega-3 fatty acids-vitamin E 1,000 mg capsule 1 cap PO QDAY 03/08/24 [History Confirmed 03/07/25] aspirin 81 mg tablet,delayed release 81 mg PO BID #60 tabs 05/23/24 [Rx Confirmed 03/07/25] doxycycline hyclate 100 mg tablet 100 mg PO BID #14 tabs 05/23/24 [Rx Confirmed 03/07/25] sennosides 8.6 mg-docusate sodium 50 mg tablet (Senna-S) 1 tab-cap PO QDAY #30 tabs 05/23/24 [Rx Confirmed 03/07/25] oxycodone 5 mg tablet 5 mg PO Q6H PRN pain #28 tabs 06/07/24 [Rx Confirmed 03/07/25] acetaminophen 500 mg tablet (Acetaminophen Extra Strength) 1,000 mg (2 x 500 mg) PO Q6H PRN pain #90 tabs 06/16/24 [Rx Confirmed 03/07/25] gabapentin 300 mg capsule 300 mg PO .qhs #30 caps 06/16/24 [Rx Confirmed 03/07/25] ibuprofen 600 mg tablet 600 mg PO Q6H PRN pain #60 tabs 06/16/24 [Rx Confirmed 03/07/25] oxycodone 5 mg tablet 5 mg PO Q6H PRN pain #28 tabs 06/23/24 [Rx Confirmed 03/07/25] cyclobenzaprine 5 mg tablet 5 mg PO TID PRN muscle spasm #30 tabs 07/01/24 [Rx Confirmed 03/07/25] gabapentin 300 mg capsule 300 mg PO .qhs #30 caps 07/01/24 [Rx Confirmed 03/07/25] Exam Exam Patient is in no acute distress and is cooperative with the examination today. Breathing is nonlabored. In no respiratory distress. Bilateral extremities were evaluated and demonstrates sensation intact to light touch. Palpable pedal pulses are present. No significant edema is present. Bilateral hips were examined. The patient has no pain with log roll of the hips. Internal rotation to 30 degrees and external rotation to 30 degrees is painless. Negative FADIR. Left knee incision is clean dry and intact. Range of motion is 0 to 100 degrees Assessment and Plan Problem List (1) Degenerative arthritis of knee, bilateral: Status: Acute Plan: Patient is a pleasant 49-year-old female with bilateral knee pain bilateral knee arthritis. SHe is doing well status post left total knee replacement. Her range of motion is great. Will see her in 12 months for routine follow-up Office Procedures GNS Level of Care Nursing/Assessment Patient Status: Established Patient Nursing Assessment/Reassesment: Medication Reconciliation, Update PMH in EMR and Vital Signs Coordination of Care: Complex Care and Chronic Disease 1-5, Education Complex Pt/Fam, Consent,records obtained, informed consent, Results/Orders obtained and Staff clarify orders Established Patient Charge Established Patient Point Assignment: 95 Established Patient Point Charge: EP Level 3 (80-115) MA Intake Visit Data Collection New Patient or Established: Established Patient (seen at 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 PCP or OBGYN visit in last 3 months: Yes Hx Now: No Do You Feel Safe at Home: Yes Authorities Contacted: N/A Questionairres Past Medical History Past Medical History Have you ever been diagnosed with any of the following: Neurological Problems Seizures: No Migraine: Yes Cardiology Problems Congestive Heart Failure: No Hypertension: No Respiratory Problems Chronic Obstructive Pulmonary Disease (COPD): No Asthma: Yes (USES SYMBICORT) Smoking: Yes (THC) Smoking Exposure: Yes Stomache/Intestinal Problems Mario's Esophagus: Yes Gastroesophageal Reflux Disease: Yes (OTC OMEPRAZOLE PRN) Genital/Urinary Problems Renal Disease: No Kidney Stones: Yes Reproductive Problems Previous Pregnancies: Yes (X2) Musculoskeletal Problems Arthritis: Yes (BILATERAL KNEES) Degenerative Disk Disease: Yes Endocrine Problems Diabetes Mellitus Type 1: No Diabetes Mellitus Type 2: No Psychologic Problems Depression: Yes (NO MEDS. USES CANNABIS) Anxiety: Yes (NO MEDS) Other Problems Hospitalization: No Shingles: No Falls: No Blood Transfusions: No Blood Transfusion Reaction: No Anesthesia Reactions: No Cancer: No Surgical History Hysterectomy: Yes Subjective Visit Visit for: follow up visit and knee Immunization / Flu Flu Vaccine in the Last 12 Months: No Flu Vaccine Exclusion Criteria: Refused by Patient History of Present Illness Chief complaint: 6 MONTH F/U TKA She is doing well. She is 9 months out and is doing well Personal History Red flag PMH: none BMI Counceling provided: Yes Pain Pain level (0-10): 1 Pain duration: 05/2024 Pain location: anterior Pain quality: dull and aching Pain timing: night Associated signs & symptoms: none Ambulatory data Ambulatory device: none Walking distance (minutes): 1 Treatments Number of previous injections: 8 (BEFORE SURGERY ) Improvement with previous injections: No Number of Physical Therapy sessions: 12 (AFTER SURGERY ) Improvement with PT: Yes Improvement with NSAIDS: n/a Review of Systems Review of Systems: All systems negative unless otherwise noted in HPI.
[2025-03-07 08:08] VITALS: BP 124/81; PULSE 68; RESP 18; TEMP 36.4; O2SAT 96; BMI 32.8
--- NOTE | 2025-03-07 08:21 | XR_ITS ---
EXAMINATION: XR knee comp BI min 4V ORDERING PROVIDER: Marshall Abel MD HISTORY: bl knee pain TECHNIQUE: 5 radiographs of the bilateral knees were obtained. COMPARISON: 07/05/2024, bilateral knee radiographs. FINDINGS: Bilateral total knee arthroplasties. No perihardware lucency. No evidence of hardware fracture. No acute bony fracture or dislocation. Surrounding soft tissues are unremarkable. IMPRESSION: Bilateral total knee arthroplasties without radiographic findings for acute hardware complication. If further clinical concern for radiographically occult process such as loosening or infection, consider nuclear medicine study.
== END 2025-03-07 08:32 | disposition home or self-care (01) ==
LOC: HODSRG 07:51
PROVIDERS: Supervising Provider Orthopaedic Surgery Adult Reconstructive Orthopaedic Surgery; Visit Provider Orthopaedic Surgery Adult Reconstructive Orthopaedic Surgery
DX: Z47.1 Aftercare following joint replacement surgery (principal); Z96.652 Presence of left artificial knee joint; M25.562 Pain in left knee; M25.561 Pain in right knee; M17.11 Unilateral primary osteoarthritis, right knee
CPT/HCPCS: 73564; 99213; G0463